=== PATIENT | male | born 1950 | race Caucasian/White ===

== ENCOUNTER 2016-12-14 20:33 | Emergency (ER) | payer SELFPAY ==
[2016-12-14] MEDS ORDERED: MORPHINE IV ONE (21:55)
[2016-12-14] MEDS ORDERED: ZOFRAN IV ONE (21:55)
--- NOTE | 2016-12-14 22:09 | Emergency Department Report ---
ED Head Trauma HPI - General Chief complaint: Head Injury Stated complaint: FOREIGN OBJECT FELL ON HEAD Source: patient, family Mode of arrival: Wheelchair Limitations: Language Barrier (coutierier used) - History of Present Illness Initial comments: 66-year-old male with a past medical history diabetes, hypertension, and elevated cholesterol presents to the hospital with head injury while at work. 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 Patient was wearing a helmet. It caused a crack in the helmet and LOC 2 minutes. Patient complains of head pain and spinal pain from the neck down through to back. She also reports bilateral shoulder pain but patient complains of left shoulder pain during evaluation. Overall pain as aching, throbbing, rated 10/10 intensity. Worsen movement and palpation. No alleviating factors. Denies nausea, blurred vision, focal numbness, weakness, or urinary incontinence. - Related Data Previous Rx's Medication Instructions Recorded Last Taken Type HYDROcodone/APAP 5-325 [[place] 1 each PO Q6HR PRN #20 tablet 12/15/16 Unknown Rx 5/325] Ibuprofen [Motrin] 800 mg PO Q8HR PRN #30 tablet 12/15/16 Unknown Rx Allergies/Adverse reactions: Allergies Allergy/AdvReac Type Severity Reaction Status Date / Time No Known Allergies Allergy Verified 12/14/16 21:28 ED Review of Systems ROS: Stated complaint: FOREIGN OBJECT FELL ON HEAD Other details as noted in HPI Comment: All other systems reviewed and negative Other: Constitutional: No fevers chills Eyes: No eye pain visual changes ENT: No ear pain or throat pain Neck: As per HPI Respiratory: Denies cough wheezing shortness of breath Cardiovascular: Denies chest pain, palpitations, syncope GI: Denies abdominal pain, nausea, vomiting, diarrhea : Denies dysuria, urinary frequency, or urgency Musculoskeletal: Per HPI Skin: Denies rash, lesions, erythema Neurologic: As per HPI Psychiatric: Denies suicidal ideation, hallucinations ED Past Medical Hx - Past Medical History Previous Medical History?: Yes Hx Hypertension: Yes Hx Diabetes: Yes Additional medical history: CHOLESTEROL - Surgical History Past Surgical History?: No - Medications Home Medications: Home Medications Medication Instructions Recorded Confirmed Last Taken Type HYDROcodone/APAP 5-325 [[place] 1 each PO Q6HR PRN #20 tablet 12/15/16 Unknown Rx 5/325] Ibuprofen [Motrin] 800 mg PO Q8HR PRN #30 tablet 12/15/16 Unknown Rx ED Physical Exam - General Limitations: Language Barrier - Other Other exam information: General: No limitations, patient is alert in no acute distress Head exam: Contusion Frontal and top of head Eyes exam: Normal appearance, pupils equal reactive to light, extraocular movements intact ENT: Moist mucous membrane, normal oropharynx Neck exam: Normal inspection, generalized midline and paraspinal muscle tenderness Respiratory exam: Clear to auscultation bilateral, no wheezes, rales, crackles Cardiovascular: Normal rate and rhythm, normal heart sounds Abdomen: Soft, nondistended, and nontender, with normal bowel sounds, no rebound, or guarding Extremity: Full range of motion normal inspection no deformity. Left arm full range of motion without deformity. Patient states the maximum at the humeral head area Back: Normal Inspection, full range of motion, generalized midline and paraspinal muscle tenderness Neurologic: Alert, oriented x3, cranial nerves intact, no motor or sensory deficit Psychiatric: normal affect, normal mood Skin: Warm, dry, intact ED Course Vital Signs 12/14/16 21:28 Temperature 98.1 F Pulse Rate 86 Respiratory 22 Rate Blood Pressure 169/103 O2 Sat by Pulse 99 Oximetry - Reevaluation(s) Reevaluation #1: 12/14/16 23:24 Treated with morphine, tordal, and Zofran for pain. 12/14/16 23:24 - Radiology Data Radiology results: report reviewed, image reviewed (xr left shoulder: naf) CT head: No acute findings CT cervical spine: No fracture seen. CT thoracic spine: No fracture seen. Mild arthritic changes CT lumbar spine: No fracture seen, takes pulse at L3-L4 may be new or old. Prominent bilateral lateral recess stenosis at this level with more moderate central canal and neural foraminal narrowing. Disc bulge and posterior element hypertrophy cause moderate bilateral neural foraminal narrowing at L4-5. Chronic bony changes at L5-S1 prominent bilateral neural foraminal stenosis. - Medical Decision Making Pain Improved with medications. C-collar removed after negative results. Plan discharge patient home with outpatient follow-up. Patient warned about postconcussive syndrome. - Differential Diagnosis contusion, concussion, intracranial hemorrhage, cord injury, fracture Critical Care Time: No Critical care attestation.: If time is entered above; I have spent that time in minutes in the direct care of this critically ill patient, excluding procedure time. ED Disposition Clinical Impression: Lumbar herniated disc Concussion with loss of consciousness Qualifiers: Encounter type: initial encounter Qualified Code(s): S06.0X9A - Concussion with loss of consciousness of unspecified duration, initial encounter Back strain Qualifiers: Encounter type: initial encounter Qualified Code(s): S39.012A - Strain of muscle, fascia and tendon of lower back, initial encounter Neck strain Qualifiers: Encounter type: initial encounter Qualified Code(s): S16.1XXA - Strain of muscle, fascia and tendon at neck level, initial encounter Disposition: DISCHARGED TO HOME OR SELFCARE Is pt being admited?: No Does the pt Need Aspirin: No Condition: Stable Instructions: Concussion (ED), Back Pain (ED), Cervical Sprain (ED), Lumbar Disc Herniation (ED) Prescriptions: HYDROcodone/APAP 5-325 [[place] 5/325] 1 each PO Q6HR PRN #20 tablet PRN Reason: Pain Ibuprofen [Motrin] 800 mg PO Q8HR PRN #30 tablet PRN Reason: Pain Referrals: AMADOU STONER MD, PHD [Staff Physician] - 2-3 Days Forms: Work/School Release Form(ED) Time of Disposition: 01:01 Print Language: GUINEAN
--- NOTE | 2016-12-14 22:44 | Cat Scan Report ---
FINAL REPORT PROCEDURE: CT HEAD/BRAIN WO CON TECHNIQUE: Computerized tomography of the head was performed without contrast material. HISTORY: axial loading injury, loc COMPARISON: No prior studies are available for comparison. FINDINGS: visualized portions of the paranasal sinuses are clear. Mastoid air cells are clear. There is no calvarial fracture. There is no hydrocephalus. No acute intracranial hemorrhage or mass effect is seen. There is no evidence of acute CVA. Minimal chronic small vessel ischemic changes are seen. IMPRESSION: No acute abnormality is seen.
--- NOTE | 2016-12-14 22:51 | Cat Scan Report ---
FINAL REPORT PROCEDURE: CT CERVICAL SPINE WO CON TECHNIQUE: Computerized tomography of the cervical spine was performed from the skull base to T1 without contrast material. HISTORY: axial loading injury, loc COMPARISON: No prior studies are available for comparison. FINDINGS: Cervical lordosis is straightened which may be positional or due to muscular spasm. Mild arthritic changes are seen with little bony neural foraminal narrowing suggested at C3-4. No areas of subluxation are seen. No prevertebral edema is seen. No C-spine fracture is seen. No obvious disc herniation is seen but soft tissue detail is limited in the mid to lower cervical spine. IMPRESSION: No fracture is seen. Straightening of cervical lordosis may be positional or due to muscular spasm.
--- NOTE | 2016-12-14 22:55 | Cat Scan Report ---
FINAL REPORT PROCEDURE: CT THORACIC SPINE WO CON TECHNIQUE: Computerized axial tomography of the thoracic spine was performed from C7 - L1 without contrast material. HISTORY: axial loading injury, loc COMPARISON: No prior studies are available for comparison. FINDINGS: Very subtle scoliosis in the upper thoracic spine is probably positional or chronic. There are right antral lateral osteophytes in the mid to lower thoracic spine. No uncovertebral osteophytes are seen. Mild hypertrophic facet changes in the lower thoracic spine cause mild neural foraminal narrowing. No thoracic compression fracture or subluxation is seen. 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 No obvious disc herniation is seen but soft tissue detail in the central canal is limited throughout the thoracic spine. IMPRESSION: Mild arthritic changes are seen without evidence of fracture.
--- NOTE | 2016-12-14 23:01 | Cat Scan Report ---
FINAL REPORT PROCEDURE: CT LUMBAR SPINE WO CON TECHNIQUE: Computerized axial tomography of the lumbar spine was performed from T12 to the sacrum without contrast material. HISTORY: axial loading injury, loc COMPARISON: No prior studies are available for comparison. FINDINGS: No lumbar compression fracture is seen. No pars defect or spondylolisthesis is seen. Congenital non fusion is seen of the transverse process ease of L1. There is no scoliosis. L1-2: No significant abnormality. L2-3: No significant abnormality. L3-4: Diffuse disc bulge is seen with mild posterior element hypertrophy. Moderate left-sided and mild right-sided neural foraminal narrowing is seen with prominent bilateral lateral recess stenosis and moderate central canal stenosis. Disc bulge may be new or old. L4-5: More mild diffuse disc bulge is seen with mild posterior element hypertrophy. Moderate bilateral neural foraminal narrowing is seen with mild lateral recess and central canal narrowing. L5-S1: Uncovertebral osteophytes are seen with central disc bulge. Bony changes cause prominent bilateral neural foraminal stenosis with disc bulge causing moderate lateral recess and mild central canal stenosis. Other: None. IMPRESSION: No fracture is seen. Disc bulge at L3-4 may be new or old. There is prominent bilateral lateral recess stenosis at this level with more moderate central canal and neural foraminal narrowing. Disc bulge and posterior element hypertrophy cause moderate bilateral neural foraminal narrowing at L4-5. Chronic bony changes at L5-S1 cause prominent bilateral neural foraminal stenosis.
[2016-12-14] MEDS ORDERED: TORADOL IV ONE (23:24)
[2016-12-15 01:16] VITALS: BP 146/83
--- NOTE | 2016-12-15 07:19 | XRay Report ---
LEFT SHOULDER: History: Left shoulder pain after injury. Routine views demonstrate normal bony and soft tissue structures with normal joint alignment of the shoulder. IMPRESSION: Unremarkable left shoulder.
== END 2016-12-15 02:00 | disposition home or self-care (01) ==
LOC: ED 20:33
DX: S06.0X9A Concussion with loss of consciousness of unspecified duration, initial encounter (principal); S39.012A Strain of muscle, fascia and tendon of lower back, initial encounter; S16.1XXA Strain of muscle, fascia and tendon at neck level, initial encounter; M51.26 Other intervertebral disc displacement, lumbar region; I10 Essential (primary) hypertension; E11.9 Type 2 diabetes mellitus without complications; E78.00 Pure hypercholesterolemia, unspecified; W20.8XXA Other cause of strike by thrown, projected or falling object, initial encounter; Y93.89 Activity, other specified; Y99.8 Other external cause status; Y92.89 Other specified places as the place of occurrence of the external cause
CPT/HCPCS: 70450; 72125; 72128; 72131; 73030; 96374; 96375; 99284; J1885; J2270; J2405

== ENCOUNTER 2017-04-07 14:22 | Emergency (ER) | payer SELFPAY ==
[2017-04-07 15:39] LABS: Bilirubin,Urine NEG (Negative); Blood,Urine NEG (Negative); Ketones,Urine NEG (Negative); Leukocyte Esterase,Urine NEG (Negative); Nitrite,Urine NEG (Negative); Protein,Urine <15 mg/dL mg/dL (Negative); RBC,Urine < 1.0 /HPF (0.0-6.0); Urobilinogen,Urine < 2.0 mg/dL (<2.0); WBC,Urine < 1.0 /HPF (0.0-6.0)
[2017-04-07 16:08] LABS: Anion Gap 22 mmol/L; Blood Urea Nitrogen 10 mg/dL (9-20); Calcium 9.4 mg/dL (8.4-10.2); Carbon Dioxide 23 mmol/L (22-30); Chloride 98.2 mmol/L (98-107); Glucose 110 mg/dL (75-100); Sodium 139 mmol/L (137-145)
--- NOTE | 2017-04-07 20:08 | Emergency Department Report ---
ED General Adult HPI - General Chief complaint: Medical Clearance Stated complaint: HIGH BLOOD SUGAR Time Seen by Provider: 04/07/17 19:45 Source: patient Mode of arrival: Ambulatory Limitations: No Limitations - History of Present Illness Initial comments: PT was sent from [facility] for elevated bg and ketones in his urine. PT has no complaints at this time. PT states he feels "good" MD Complaint: elevated bg Severity scale (0 -10): 0 Associated Symptoms: denies: chest pain, loss of appetite, malaise, nausea/ vomiting Treatments Prior to Arrival: none - Related Data Home Medications Medication Instructions Recorded Confirmed Last Taken Ferrous Sulfate [Feosol] 325 mg PO QDAY 04/07/17 04/07/17 Unknown Metformin HCl [Glucophage] 1,000 mg PO BID 04/07/17 04/07/17 04/07/17 09:00 glipiZIDE [Glucotrol] 10 mg PO QDAY 04/07/17 04/07/17 04/07/17 09:00 Allergies Allergy/AdvReac Type Severity Reaction Status Date / Time No Known Allergies Allergy Verified 04/07/17 14:34 ED Review of Systems ROS: Stated complaint: HIGH BLOOD SUGAR Other details as noted in HPI Comment: All other systems reviewed and negative Constitutional: denies: chills, fever Endocrine: other (was told his bg is elevated ) Gastrointestinal: denies: nausea, vomiting Genitourinary: denies: dysuria Musculoskeletal: denies: back pain ED Past Medical Hx - Past Medical History Hx Hypertension: Yes Hx Diabetes: Yes Additional medical history: CHOLESTEROL. ANEMIA - Surgical History Past Surgical History?: No - Social History Smoking Status: Former Smoker Substance Use Type: None - Medications Home Medications: Home Medications Medication Instructions Recorded Confirmed Last Taken Type Ferrous Sulfate [Feosol] 325 mg PO QDAY 04/07/17 04/07/17 Unknown History Metformin HCl [Glucophage] 1,000 mg PO BID 04/07/17 04/07/17 04/07/17 09:00 History glipiZIDE [Glucotrol] 10 mg PO QDAY 04/07/17 04/07/17 04/07/17 09:00 History ED Physical Exam - General Limitations: No Limitations General appearance: alert, in no apparent distress - Head Head exam: Present: atraumatic, normocephalic - Eye Eye exam: Present: normal appearance. Absent: conjunctival injection - ENT ENT exam: Present: normal exam, normal external ear exam - Neck Neck exam: Present: normal inspection, full ROM - Respiratory Respiratory exam: Present: normal lung sounds bilaterally. Absent: respiratory distress - Cardiovascular Cardiovascular Exam: Present: regular rate, normal rhythm - GI/Abdominal GI/Abdominal exam: Present: soft. Absent: distended, tenderness - Extremities Exam Extremities exam: Present: normal inspection, full ROM - Back Exam Back exam: Present: normal inspection, full ROM. Absent: tenderness, CVA tenderness (R), CVA tenderness (L) - Neurological Exam Neurological exam: Present: alert, oriented X3, normal gait - Psychiatric Psychiatric exam: Present: normal affect, normal mood - Skin Skin exam: Present: warm, dry, intact ED Course Vital Signs 04/07/17 14:42 Temperature 97.7 F Pulse Rate 91 H Respiratory 18 Rate Blood Pressure 154/97 O2 Sat by Pulse 100 Oximetry - Reevaluation(s) Reevaluation #1: 04/07/17 20:07 PT aware of lab work. PT aware that his bp is elevated. PT states that he was on a bp medication but he is not sure which one. PT has no complaints. PT aware he will need to follow up with PCP for bp recheck. - Pulse Oximetry Interpretation Digit-Finger Initial Pulse Oximetry Readin Actions Taken: none ED Medical Decision Making - Lab Data Result diagrams: 04/07/17 14:58 Laboratory Results - last 72 hr 04/07/17 04/07/17 04/07/17 14:32 14:49 14:58 Sodium 139 Potassium 4.0 Chloride 98.2 Carbon Dioxide 23 Anion Gap 22 BUN 10 Creatinine 0.8 Estimated GFR > 60 BUN/Creatinine Ratio 12.50 Glucose 110 H POC Glucose 130 H Calcium 9.4 Urine Color Straw Urine Turbidity Clear Urine pH 8.0 H Ur Specific [place] 1.005 Urine Protein <15 mg/dl Urine Glucose (UA) Neg Urine Ketones Neg Urine Blood Neg Urine Nitrite Neg Urine Bilirubin Neg Urine Urobilinogen < 2.0 Ur Leukocyte Esterase Neg Urine WBC (Auto) < 1.0 Urine RBC (Auto) < 1.0 - Differential Diagnosis dka, elevated bg, feared not found medical dx Critical Care Time: No Critical care attestation.: If time is entered above; I have spent that time in minutes in the direct care of this critically ill patient, excluding procedure time. ED Disposition Clinical Impression: No problem, feared complaint unfounded Disposition: DISCHARGED TO HOME OR SELFCARE Is pt being admited?: No Does the pt Need Aspirin: No Condition: Stable Instructions: Diabetic Foot Care (ED), Diabetes Mellitus Type 2 in Adults (ED) , Hypertension (ED) Additional Instructions: Continue taking your medication as prescribed Follow up with Jennifer Carreon early next week Return to the ED if worsening or concerns Referrals: PRIMARY CARE, [Primary Care Provider] - 3-5 Days Time of Disposition: 20:11
[2017-04-08 01:36] VITALS: BP 151/101
== END 2017-04-07 20:20 | disposition home or self-care (01) ==
LOC: ED 14:22
DX: E11.9 Type 2 diabetes mellitus without complications (principal); I10 Essential (primary) hypertension; Z87.891 Personal history of nicotine dependence
CPT/HCPCS: 36415; 80048; 81001; 82962; 99283